=== PATIENT | female | born 1990 | race Caucasian/White ===

== ENCOUNTER 2019-07-18 12:05 | Emergency (ER) | payer OTHER ==
[~2019-07-18] VITALS: Ht 162.6 cm; Wt 81.2 kg
[2019-07-18 12:24] VITALS: Ht 162.6 cm; Wt 81.2 kg
[2019-07-18 14:24] VITALS: BP 128/84
== END 2019-07-18 14:25 | disposition home or self-care (01) ==
LOC: ED 12:05
DX: S01.01XA Laceration without foreign body of scalp, initial encounter (principal); M54.6 Pain in thoracic spine; W01.0XXA Fall on same level from slipping, tripping and stumbling without subsequent striking against object, initial encounter; Y93.89 Activity, other specified; Y92.89 Other specified places as the place of occurrence of the external cause; Y99.8 Other external cause status
CPT/HCPCS: 90715

== ENCOUNTER 2019-07-25 13:30 | Emergency (ER) | payer OTHER ==
[~2019-07-25] VITALS: Ht 167.6 cm; Wt 81.2 kg
[2019-07-25 13:47] VITALS: BP 133/85; Ht 167.6 cm; Wt 81.2 kg
== END 2019-07-25 17:33 | disposition left against medical advice (07) ==
LOC: ED 13:30
DX: Z53.21 Procedure and treatment not carried out due to patient leaving prior to being seen by health care provider (principal)

== ENCOUNTER 2019-07-28 10:41 | Emergency (ER) | payer OTHER ==
[~2019-07-28] VITALS: Ht 162.6 cm; Wt 82.1 kg
[2019-07-28 10:49] VITALS: Ht 162.6 cm; Wt 82.1 kg
[2019-07-28 14:49] VITALS: BP 114/72
== END 2019-07-28 14:49 | disposition home or self-care (01) ==
LOC: ED 10:41
DX: S01.01XD Laceration without foreign body of scalp, subsequent encounter (principal); W18.39XD Other fall on same level, subsequent encounter